=== PATIENT | female | born 1945 | race Caucasian/White ===

== ENCOUNTER 2017-10-25 00:37 | Day surgery (SDC) | payer MEDICARE, OTHER ==
[~2017-10-25 00:37] MED LIST: BLOOD PRESSURE MED
[2017-10-25] MEDS ORDERED: Lialda1.2 GM PO (14:38)
[2017-10-25] MEDS ORDERED: HYDCHL12.5 PO (14:38)
[2017-10-25] MEDS ORDERED: IRBE150 PO (14:39)
[2018-08-11] MEDS ORDERED: INFLECTRA100 MG IV (08:26)
[2018-08-11] MEDS ORDERED: TRIDERM28.4 GM TOP (08:27)
== END 2017-10-25 17:22 | disposition home or self-care (01) ==
LOC: ATC 00:37
DX: K50.913 Crohn's disease, unspecified, with fistula (principal); I10 Essential (primary) hypertension; Z79.899 Other long term (current) drug therapy
CPT/HCPCS: 96413; 96415; J7050; Q5102-ZB

== ENCOUNTER 2017-11-08 01:05 | Day surgery (SDC) | payer MEDICARE, OTHER ==
[~2017-11-08 01:05] MED LIST changes: +HYDCHL12.5 PO; +IRBE150 PO; +Lialda1.2 GM PO
[2018-08-11] MEDS ORDERED: INFLECTRA100 MG IV (08:26)
[2018-08-11] MEDS ORDERED: TRIDERM28.4 GM TOP (08:27)
== END 2017-11-08 11:02 | disposition home or self-care (01) ==
LOC: ATC 01:05
DX: K50.913 Crohn's disease, unspecified, with fistula (principal); K52.9 Noninfective gastroenteritis and colitis, unspecified; I10 Essential (primary) hypertension; Z79.899 Other long term (current) drug therapy
CPT/HCPCS: 96413; 96415; J7050; Q5102-ZB

== ENCOUNTER 2018-02-14 00:11 | Day surgery (SDC) | payer MEDICARE, OTHER | END 2018-02-14 11:36 | disposition home or self-care (01) | LOC: ATC 00:11 | DX: K50.113 Crohn's disease of large intestine with fistula (principal); I10 Essential (primary) hypertension; Z79.899 Other long term (current) drug therapy; R19.7 Diarrhea, unspecified | CPT/HCPCS: 96413; 96415; J7050; Q5103 ==

== ENCOUNTER 2018-06-16 00:32 | Day surgery (SDC) | payer MEDICARE, OTHER | END 2018-06-16 10:35 | disposition home or self-care (01) | LOC: ATC 00:32 | DX: K50.119 Crohn's disease of large intestine with unspecified complications (principal); I10 Essential (primary) hypertension | CPT/HCPCS: 96413; 96415; J7050; Q5103 ==

== ENCOUNTER 2018-10-06 00:07 | Day surgery (SDC) | payer MEDICARE, OTHER ==
[~2018-10-06 00:07] MED LIST changes: +INFLECTRA100 MG IV; +TRIDERM28.4 GM TOP
== END 2018-10-06 22:47 | disposition home or self-care (01) ==
LOC: ATC 00:07
DX: K50.119 Crohn's disease of large intestine with unspecified complications (principal)

== ENCOUNTER 2018-12-16 01:01 | Day surgery (SDC) | payer MEDICARE, OTHER | END 2018-12-16 10:55 | disposition home or self-care (01) | LOC: ATC 01:01 | DX: K50.119 Crohn's disease of large intestine with unspecified complications (principal); K60.3 Anal fistula; I10 Essential (primary) hypertension; Z87.442 Personal history of urinary calculi; Z79.899 Other long term (current) drug therapy; Z88.8 Allergy status to other drugs, medicaments and biological substances | CPT/HCPCS: 96413; 96415; J7050; Q5103 ==

== ENCOUNTER 2019-02-11 00:37 | Day surgery (SDC) | payer MEDICARE, OTHER ==
--- NOTE | 2019-02-11 09:46 | NUR ---
PT DECLINES PRE-MEDS
== END 2019-02-11 11:32 | disposition home or self-care (01) ==
LOC: ATC 00:37
DX: K50.119 Crohn's disease of large intestine with unspecified complications (principal); K60.3 Anal fistula; I10 Essential (primary) hypertension; Z87.442 Personal history of urinary calculi; Z79.899 Other long term (current) drug therapy; Z88.8 Allergy status to other drugs, medicaments and biological substances
CPT/HCPCS: 96413; 96415; J7050; Q5103

== ENCOUNTER 2019-03-25 00:11 | Day surgery (SDC) | payer MEDICARE, OTHER | END 2019-03-25 11:21 | disposition home or self-care (01) | LOC: ATC 00:11 | DX: K50.119 Crohn's disease of large intestine with unspecified complications (principal); I10 Essential (primary) hypertension; Z87.442 Personal history of urinary calculi; Z79.899 Other long term (current) drug therapy; Z88.8 Allergy status to other drugs, medicaments and biological substances | CPT/HCPCS: 96413; 96415; J7050; Q5103 ==

== ENCOUNTER 2019-11-04 00:05 | Day surgery (SDC) | payer MEDICARE, OTHER | END 2019-11-04 11:12 | disposition home or self-care (01) | LOC: ATC 00:05 | DX: K50.119 Crohn's disease of large intestine with unspecified complications (principal); I10 Essential (primary) hypertension; K60.3 Anal fistula; Z79.899 Other long term (current) drug therapy; Z88.8 Allergy status to other drugs, medicaments and biological substances | CPT/HCPCS: 96413; 96415; J7050; Q5103 ==

== ENCOUNTER 2019-11-19 00:20 | Day surgery (SDC) | payer MEDICARE, OTHER | END 2019-11-19 16:24 | disposition home or self-care (01) | LOC: ATC 00:20 | DX: K50.119 Crohn's disease of large intestine with unspecified complications (principal); K60.3 Anal fistula; I10 Essential (primary) hypertension; Z88.8 Allergy status to other drugs, medicaments and biological substances; Z79.899 Other long term (current) drug therapy | CPT/HCPCS: 96413; 96415; J7050; Q5103 ==

== ENCOUNTER 2020-01-14 | Day surgery (SDC) | payer MEDICARE, OTHER | END 2020-01-14 10:52 | disposition home or self-care (01) | LOC: ATC | DX: K50.119 Crohn's disease of large intestine with unspecified complications (principal); I10 Essential (primary) hypertension; Z88.8 Allergy status to other drugs, medicaments and biological substances; Z79.899 Other long term (current) drug therapy | CPT/HCPCS: 96413; 96415; J7050; Q5103 ==

== ENCOUNTER 2020-07-15 01:51 | Day surgery (SDC) | payer MEDICARE, OTHER | END 2020-07-15 16:24 | disposition home or self-care (01) | LOC: ATC 01:51 | DX: K50.90 Crohn's disease, unspecified, without complications (principal) | CPT/HCPCS: 96413; 96415; J7050; Q5103 ==

== ENCOUNTER 2020-09-07 05:39 | Day surgery (SDC) | payer MEDICARE, OTHER | END 2020-09-07 10:15 | disposition home or self-care (01) | LOC: ATC 05:39 | DX: K50.113 Crohn's disease of large intestine with fistula (principal); I10 Essential (primary) hypertension; Z79.899 Other long term (current) drug therapy; Z88.8 Allergy status to other drugs, medicaments and biological substances | CPT/HCPCS: 96413; 96415; J7050; Q5103 ==

== ENCOUNTER 2020-11-02 00:09 | Day surgery (SDC) | payer MEDICARE, OTHER ==
--- NOTE | 2020-11-02 08:30 | NUR ---
PT STATES SHE DOESN'T TAKE ANY PRE MEDS.
== END 2020-11-02 10:58 | disposition home or self-care (01) ==
LOC: ATC 00:09
DX: K50.113 Crohn's disease of large intestine with fistula (principal); I10 Essential (primary) hypertension; Z79.899 Other long term (current) drug therapy
CPT/HCPCS: 96413; 96415; J1745; J7050; Q5103

== ENCOUNTER 2021-02-22 02:41 | Day surgery (SDC) | payer MEDICARE, OTHER ==
[~2021-02-22] VITALS: Wt 108.8 kg
--- NOTE | 2021-02-22 08:58 | NUR ---
PT REFUSES ANY PRE MEDS.
== END 2021-02-22 11:18 | disposition home or self-care (01) ==
LOC: ATC 02:41
DX: K50.019 Crohn's disease of small intestine with unspecified complications (principal); I10 Essential (primary) hypertension
CPT/HCPCS: 96413; 96415; J1745; J7050

== ENCOUNTER 2021-04-19 01:13 | Day surgery (SDC) | payer MEDICARE, OTHER ==
[2021-04-19] MEDS ORDERED: HAIR, SKIN AND1 EAC1 PO (08:16)
== END 2021-04-19 11:00 | disposition home or self-care (01) ==
LOC: ATC 01:13
DX: K50.119 Crohn's disease of large intestine with unspecified complications (principal)
CPT/HCPCS: 96413; 96415; J7050; Q5103

== ENCOUNTER → 2021-04-21 | Outpatient (CLI) | payer MEDICARE, OTHER ==
[~2021-04-21] MED LIST changes: +HAIR, SKIN AND1 EAC1 PO
== END | disposition home or self-care (01) ==
LOC: LAB 12:11 → LAB SHORT 12:11
DX: N95.0 Postmenopausal bleeding (principal)
CPT/HCPCS: 88305

== ENCOUNTER 2021-07-07 02:55 | Day surgery (SDC) | payer MEDICARE, OTHER ==
--- NOTE | 2021-07-07 14:00 | NUR ---
PT DECLINES PRE MEDS.
== END 2021-07-07 17:02 | disposition home or self-care (01) ==
LOC: ATC 02:55
DX: K50.019 Crohn's disease of small intestine with unspecified complications (principal)
CPT/HCPCS: 96413; 96415; J7050; Q5103

== ENCOUNTER 2021-11-01 00:19 | Day surgery (SDC) | payer MEDICARE, OTHER | END 2021-11-01 10:43 | disposition home or self-care (01) | LOC: ATC 00:19 | DX: K50.113 Crohn's disease of large intestine with fistula (principal); I10 Essential (primary) hypertension | CPT/HCPCS: J7050; Q5103 ==

== ENCOUNTER 2021-12-27 01:01 | Day surgery (SDC) | payer MEDICARE, OTHER | END 2021-12-27 11:25 | disposition home or self-care (01) | LOC: ATC 01:01 | DX: K50.113 Crohn's disease of large intestine with fistula (principal); I10 Essential (primary) hypertension | CPT/HCPCS: J7050; Q5103 ==

== ENCOUNTER 2022-04-18 07:43 | Day surgery (SDC) | payer MEDICARE, OTHER | END 2022-04-18 10:33 | disposition home or self-care (01) | LOC: ATC 07:43 | DX: K50.10 Crohn's disease of large intestine without complications (principal) | CPT/HCPCS: 96413; 96415; J7050; Q5103 ==

== ENCOUNTER 2022-06-13 01:50 | Day surgery (SDC) | payer MEDICARE, OTHER | END 2022-06-13 10:57 | disposition home or self-care (01) | LOC: ATC 01:50 | DX: K50.113 Crohn's disease of large intestine with fistula (principal); I10 Essential (primary) hypertension; Z79.899 Other long term (current) drug therapy | CPT/HCPCS: 96413; 96415; J7050; Q5103 ==

== ENCOUNTER 2022-06-16 15:22 | Emergency (ER) | payer MEDICARE, OTHER ==
[~2022-06-16] VITALS: Ht 154.9 cm; Wt 108.9 kg
[2022-06-16] MEDS ORDERED: Percocet 5-3251 EACH PO (17:18)
== END 2022-06-16 18:23 | disposition home or self-care (01) ==
LOC: ER 15:22
DX: S42.212A Unspecified displaced fracture of surgical neck of left humerus, initial encounter for closed fracture (principal); W10.9XXA Fall (on) (from) unspecified stairs and steps, initial encounter; I10 Essential (primary) hypertension; Z79.899 Other long term (current) drug therapy
CPT/HCPCS: 29105; 73030; 73060; 96372-59; 99284-25; A9270; J1885

== ENCOUNTER 2022-08-21 01:45 | Day surgery (SDC) | payer MEDICARE, OTHER ==
[~2022-08-21 01:45] MED LIST changes: +Percocet 5-3251 EACH PO
== END 2022-08-21 11:21 | disposition home or self-care (01) ==
LOC: ATC 01:45
DX: K50.119 Crohn's disease of large intestine with unspecified complications (principal)
CPT/HCPCS: 96413; 96415; J7050; Q5103

== ENCOUNTER 2023-02-06 00:24 | Day surgery (SDC) | payer MEDICARE, OTHER ==
[~2023-02-06] VITALS: Wt 112.8 kg
[2023-02-06 08:53] VITALS: BP 160/74
== END 2023-02-06 11:30 | disposition home or self-care (01) ==
LOC: ATC 00:24
DX: K50.119 Crohn's disease of large intestine with unspecified complications (principal); Z79.899 Other long term (current) drug therapy
CPT/HCPCS: J7050; Q5103

== ENCOUNTER 2023-06-04 02:26 | Day surgery (SDC) | payer MEDICARE, OTHER ==
[2023-06-04 08:10] VITALS: BP 118/70
== END 2023-06-04 10:46 | disposition home or self-care (01) ==
LOC: ATC 02:26
DX: K50.119 Crohn's disease of large intestine with unspecified complications (principal); I10 Essential (primary) hypertension; Z79.899 Other long term (current) drug therapy
CPT/HCPCS: 96413; 96415; J7050; Q5103

== ENCOUNTER 2023-07-30 02:22 | Day surgery (SDC) | payer MEDICARE, OTHER ==
[2023-07-30 08:10] VITALS: BP 168/82
== END 2023-07-30 10:53 | disposition home or self-care (01) ==
LOC: ATC 02:22
DX: K50.119 Crohn's disease of large intestine with unspecified complications (principal); I10 Essential (primary) hypertension; Z79.899 Other long term (current) drug therapy
CPT/HCPCS: 96413; 96415; J7050; Q5103

== ENCOUNTER 2023-09-24 00:48 | Day surgery (SDC) | payer MEDICARE, OTHER ==
[2023-09-24 08:04] VITALS: BP 133/84
[2023-09-24 10:39] VITALS: BP 128/76
== END 2023-09-24 10:45 | disposition home or self-care (01) ==
LOC: ATC 00:48
DX: K50.119 Crohn's disease of large intestine with unspecified complications (principal); Z79.899 Other long term (current) drug therapy
CPT/HCPCS: 96413; 96415; J7050; Q5103

== ENCOUNTER 2024-03-23 02:52 | Day surgery (SDC) | payer MEDICARE, OTHER ==
[2024-03-23 07:55] VITALS: BP 149/81
[2024-03-23] MEDS ORDERED: OZEMPIC1 MG/0.72 SC (08:02)
[2024-03-23] MEDS ORDERED: Infliximab-DYYB 500 MG in NS 250 ML IV SCH (08:05)
== END 2024-03-23 10:36 | disposition home or self-care (01) ==
LOC: ATC 02:52
DX: K50.119 Crohn's disease of large intestine with unspecified complications (principal)
CPT/HCPCS: 96413; 96415; J7050; Q5103

== ENCOUNTER 2024-07-24 03:41 | Day surgery (SDC) | payer MEDICARE, OTHER ==
[~2024-07-24 03:41] MED LIST changes: +OZEMPIC1 MG/0.72 SC
[2024-07-24 07:55] VITALS: BP 144/75
[2024-07-24] MEDS ORDERED: Infliximab-DYYB 500 MG in NS 250 ML IV SCH (08:00)
== END 2024-07-24 10:37 | disposition home or self-care (01) ==
LOC: ATC 03:41
DX: K50.119 Crohn's disease of large intestine with unspecified complications (principal); I10 Essential (primary) hypertension; Z79.899 Other long term (current) drug therapy; Z88.8 Allergy status to other drugs, medicaments and biological substances
CPT/HCPCS: 96413; 96415; J7050; Q5103

== ENCOUNTER 2024-09-17 04:08 | Day surgery (SDC) | payer MEDICARE, OTHER ==
[~2024-09-17] VITALS: Wt 104.6 kg
[2024-09-17 08:05] VITALS: BP 111/66
[2024-09-17] MEDS ORDERED: Infliximab-DYYB 500 MG in NS 250 ML IV SCH (08:15)
== END 2024-09-17 11:06 | disposition home or self-care (01) ==
LOC: ATC 04:08
DX: K50.119 Crohn's disease of large intestine with unspecified complications (principal); I10 Essential (primary) hypertension; Z79.899 Other long term (current) drug therapy; Z88.8 Allergy status to other drugs, medicaments and biological substances
CPT/HCPCS: 96413; 96415; J7050; Q5103

== ENCOUNTER 2024-11-12 01:34 | Day surgery (SDC) | payer MEDICARE, OTHER ==
[~2024-11-12] VITALS: Wt 102.8 kg
[2024-11-12 08:03] VITALS: BP 144/84
[2024-11-12] MEDS ORDERED: Infliximab-DYYB 500 MG in NS 250 ML IV SCH (08:35)
== END 2024-11-12 11:15 | disposition home or self-care (01) ==
LOC: ATC 01:34
DX: K50.119 Crohn's disease of large intestine with unspecified complications (principal); I10 Essential (primary) hypertension; Z79.899 Other long term (current) drug therapy; Z88.4 Allergy status to anesthetic agent
CPT/HCPCS: 96413; 96415; J7050; Q5103

== ENCOUNTER 2025-01-07 03:14 | Day surgery (SDC) | payer MEDICARE, OTHER ==
[~2025-01-07] VITALS: Wt 104.0 kg
[2025-01-07] MEDS ORDERED: Acetaminophen 325 MG TABLET PO SCH (06:55)
[2025-01-07 08:00] VITALS: BP 142/83
[2025-01-07] MEDS ORDERED: Infliximab-DYYB 500 MG in NS 250 ML IV SCH (08:10)
== END 2025-01-07 10:39 | disposition home or self-care (01) ==
LOC: ATC 03:14
DX: K50.119 Crohn's disease of large intestine with unspecified complications (principal); I10 Essential (primary) hypertension; Z88.8 Allergy status to other drugs, medicaments and biological substances; Z79.899 Other long term (current) drug therapy
CPT/HCPCS: 96413; 96415; J7050; Q5103